=== PATIENT | male | born 1990 | race Caucasian/White ===

== ENCOUNTER 2020-11-24 09:03 | Emergency (ER) | payer OTHER ==
[~2020-11-24] VITALS: Ht 172.7 cm; Wt 68.8 kg
--- NOTE | 2020-11-24 09:10 | NUR ---
PT HAS BLACK SUBSTANCE IN BAGGY. BAGGY GIVEN TO SECURITY. SINGLE CORNER CUTTER ADVISED.
--- NOTE | 2020-11-24 09:26 | NUR ---
BLACK TAR LIKE SUBSTANCE DISPOSED OF IN PHARMACY BIOMED BOTTLE WITH SPRING CRATER MARIA A WITNESS.
[2020-11-24] MEDS ORDERED: NALOXONE 0.4 MG/ML, 1ML IM ONE (09:30)
[2020-11-24] MEDS ORDERED: NALOXONE 0.4 MG/ML, 1ML ONE (09:32)
[2020-11-24] MEDS ORDERED: NALOXONE 0.4 MG/ML, 1ML IVPush ONE (10:00)
--- NOTE | 2020-11-24 10:45 | NUR ---
PT OFF THE FLOOR TO RADIOLOGY
[2020-11-24 10:59] LABS: AMPHETAMINE SCREEN, URINE Positive (Negative); BARBITURATE SCREEN, URINE Negative (Negative); BENZODIAZEPINE SCREEN, URINE Positive (Negative); COCAINE SCREEN, URINE Negative (Negative); METHADONE SCREEN, URINE Negative (Negative); OPIATE SCREEN, URINE Positive (Negative)
[2020-11-24 11:06] LABS: CANNABINOID SCREEN, URINE Positive (Negative)
--- NOTE | 2020-11-24 11:10 | NUR ---
PT BACK FROM CT. INFANT ROOM TEACHER ADVISED UNABLE TO COMPLETE CT DUE TO PT BEING COMBATIVE WITH STAFF.
[2020-11-24 11:33] LABS: BASOPHILS % (AUTO) 1 % (0-1); EOSINOPHILS % (AUTO) 3 % (1-7); LYMPHOCYTES % (AUTO) 32 % (22-44); MEAN CORPUSCULAR HEMOGLOBIN 30.1 pg (27.5-34.5); MEAN CORPUSCULAR HGB CONC 33.9 g/dL (33.2-36.2); MEAN PLATELET VOLUME 8.2 fL (7.4-10.4); MONOCYTES % (AUTO) 13 % (2-9); NEUTROPHILS % (AUTO) 51 % (42-75); PLATELET COUNT 232 x10^3/uL (130-400); RED BLOOD COUNT 4.82 x10^6/uL (4.38-5.82); RED CELL DISTRIBUTION WIDTH 14.3 % (9.4-14.8)
[2020-11-24 11:46] LABS: ALBUMIN 3.4 g/dL (3.4-5.0); ANION GAP 9 mmol/L (5-15); CALCIUM 9.3 mg/dL (8.5-10.1); CHLORIDE 107 mmol/L (98-107)
[2020-11-24 11:50] LABS: ALANINE AMINOTRANSFERASE 118 U/L (12-78); ALKALINE PHOSPHATASE 85 U/L (45-117); BILIRUBIN,TOTAL 1.8 mg/dL (0.2-1.0); CREATININE 0.73 mg/dL (0.7-1.3); TOTAL PROTEIN 7.6 g/dL (6.4-8.2)
[2020-11-24] MEDS ORDERED: NALOXONE 1 MG/ML, 2ML ONE (11:54)
[2020-11-24] MEDS ORDERED: NALOXONE 1 MG/ML, 2ML IM ONE (12:00)
--- NOTE | 2020-11-24 14:58 | NUR ---
PT LAYING ON SIDE ON ED GURNEY WITH EYES CLOSED, EVEN RISE AND FALL OF CHEST NOTED. PT RESPONDS TO VOICE BUT NOT ANSWERING QUESTIONS, BUT WILL FOLLOW COMMANDS. VSS. RAILS UP. CALL LIGHT WITHIN REACH.
--- NOTE | 2020-11-24 16:23 | NUR ---
PT LAYING ON SIDE ON ED GURNEY WITH EYES CLOSED, EVEN RISE AND FALL OF CHEST NOTED. PT RESPONDS TO VOICE. VSS. RAILS UP. CALL LIGHT WITHIN REACH. AWAITING FURTHER ORDERS.
--- NOTE | 2020-11-24 17:04 | NUR ---
PT'S MOM CONTACTED [phone] TO FACILITATE PT RIDE HOME
--- NOTE | 2020-11-24 18:00 | NUR ---
PT IN ROOM WITH MOTHER. WHILE GIVING PT DISCHARGE INSTRUCTIONS MOTHER MADE STATMENTS THAT THE PATIENT HAD BEEN TAKING DRUGS MORE FREQUENTLY AND SHE WAS WORRIED THAT HE WAS GOIGN TO . WHEN PT ASKED DIRECTLY IF HE INTENEDED TO HARM HIMSELF PT STATED "IF DOING THIS GETS ME TO MY DAD, THEN YEAH". PT THEN ASKED THE NURSE TO TAKE ALL THE DILAUDID AND PUT IT A NEEDLE AND JAM IT INTO HIS NECK. PT'S MOM SAID THAT SHE WOULD NOT TAKE RESPONSIBILITY FOR HIM AND SHE FEARED HE WOULD HARM HIMSELF IN ORDER TO AND BE WITH HIS DAD. DR GALDAMEZ ADVISED OF PT STATEMENTS. DR GALDAMEZ ADVISED HE WOULD BE PUTTING PT ON LEGAL HOLD. SECURITY REQUESTED TO HELP MOVE PATIENT TO A DIFFERENT ROOM THAT COULD BE SECURED AND HAVE A SITTER. PT NOT COOPERATING WITH STAFF AND WAS PLACED IN 4 POINT RESTRAINTS. PT PLACED ON [place] AND [facility] ASSESSED.
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
--- NOTE | 2020-11-24 18:53 | NUR ---
REPORT RECIEVED FROM CATY ALFONSO
--- NOTE | 2020-11-24 18:54 | NUR ---
late entry: given food. restraints removed. verbal contract to remain appropriate. vss. sitter at bedside. as
[2020-11-24 19:24] LABS: SALICYLATE LEVEL < 1.7 mg/dL (2.8-20.0)
--- NOTE | 2020-11-24 19:57 | NUR ---
PT ASLEEP IN BED, ALL NEEDS IN REACH, CALL LIGHT IN REACH, NAD, GARAGE DOORS DOWN, SITTER IN LINE OF SIGHT
--- NOTE | 2020-11-24 20:03 | NUR ---
THROUGHPUT RN: PACKET FAXED TO [facility].
--- NOTE | 2020-11-24 20:22 | NUR ---
PT ASLEEP IN BED, ALL NEEDS IN REACH, CALL LIGHT IN REACH, NAD, GARAGE DOORS DOWN, SITTER IN LINE OF SIGHT
--- NOTE | 2020-11-24 21:57 | NUR ---
PT ASLEEP IN BED, ALL NEEDS IN REACH, CALL LIGHT IN REACH, NAD, GARAGE DOORS DOWN, SITTER IN LINE OF SIGHT
--- NOTE | 2020-11-24 22:03 | NUR ---
PT ASLEEP IN BED, ALL NEEDS IN REACH, CALL LIGHT IN REACH, NAD, GARAGE DOORS DOWN, SITTER IN LINE OF SIGHT
--- NOTE | 2020-11-24 23:13 | NUR ---
PT GAVE CONCENT FOR THIS RN TO GO THROUGH HIS BELONGINGS AND GET THE PHONE FOR HIS GIRLFRIEND WHO IS ADMITTED ON THE 4TH FLOOR, ISA ALFONSO CAME DOWN AND GOT A BLUE PHONE WITH THE OCCUPATIONAL REHABILITATION AIDE AND TOOK IT UP TO PTS GIRLFRIEND
--- NOTE | 2020-11-25 00:08 | NUR ---
PT ASLEEP IN BED, ALL NEEDS IN REACH, CALL LIGHT IN REACH, NAD, GARAGE DOORS DOWN, SITTER IN LINE OF SIGHT
--- NOTE | 2020-11-25 01:06 | NUR ---
PT ASLEEP IN BED, ALL NEEDS IN REACH, CALL LIGHT IN REACH, NAD, GARAGE DOORS DOWN, SITTER IN LINE OF SIGHT
--- NOTE | 2020-11-25 02:02 | NUR ---
PT ASLEEP IN BED, ALL NEEDS IN REACH, CALL LIGHT IN REACH, NAD, GARAGE DOORS DOWN, SITTER IN LINE OF SIGHT
--- NOTE | 2020-11-25 03:41 | NUR ---
PT WOKE UP FROM SLEEPING AND STATED THAT HE IS STARTING TO EXPERIENCE WITHDRAWAL SYMPTOMS FROM HEROIN, PT STATED HE USES 1.5 GRAMS OF HEROIN DAILY IS STARTING TO FEEL REALLY BAD, MD NOTIFIED, PO MEDICATIONS ORDERED AND ADMINISTERED BY THIS RN
[2020-11-25] MEDS ORDERED: DIPHENHYDRAMINE 25 MG CAPSULE ONE (03:46)
[2020-11-25] MEDS ORDERED: LORazepam 1MG TABLET ONE (03:46)
[2020-11-25] MEDS ORDERED: LORazepam 1MG TABLET PO ONE (04:00)
--- NOTE | 2020-11-25 04:07 | NUR ---
PT ASLEEP IN BED, ALL NEEDS IN REACH, CALL LIGHT IN REACH, NAD, GARAGE DOORS DOWN, SITTER IN LINE OF SIGHT
--- NOTE | 2020-11-25 05:12 | NUR ---
PT ASLEEP IN BED, ALL NEEDS IN REACH, CALL LIGHT IN REACH, NAD, GARAGE DOORS DOWN, SITTER IN LINE OF SIGHT
--- NOTE | 2020-11-25 06:05 | NUR ---
PT ASLEEP IN BED, ALL NEEDS IN REACH, CALL LIGHT IN REACH, NAD, GARAGE DOORS DOWN, SITTER IN LINE OF SIGHT
--- NOTE | 2020-11-25 08:45 | NUR ---
pt provided with hmeal tray. a&ox4. reports "i need something for my heroin withdrawal" vss
[2020-11-25 08:46] VITALS: BP 128/85
--- NOTE | 2020-11-25 10:16 | NUR ---
PT AGITATED (PACING IN AND OUT OF ROOM. COMING INTO OTHER PT ROOMS TO FIND NURSE). DISCUSSED POC WITH PT. PT NOT REASSURABLE. REPEATEDLY CLAIMING "IM NOT SUICIDAL". DR MORRISON TO BEDSIDE TO ASSESS
--- NOTE | 2020-11-25 10:55 | NUR ---
pt provided with cranberry juice per request
[2020-11-25] MEDS ORDERED: DIPHENHYDRAMINE 25 MG CAPSULE PO ONE (21:00)
== END 2020-11-25 13:15 | disposition home or self-care (01) ==
LOC: ED 18:34 → INTOOBSV 18:44 → UNDOADMOB 18:44 → EDIP 18:44
DX: R45.851 Suicidal ideations (principal); R51.9 Headache, unspecified; F12.10 Cannabis abuse, uncomplicated; F15.10 Other stimulant abuse, uncomplicated; F11.10 Opioid abuse, uncomplicated; G92 Toxic encephalopathy
CPT/HCPCS: 36415; 70450; 80053; 80299; 80307; 80320; 80329; 85025; 96372; 99285; J2310; Q0163; G0480

== ENCOUNTER 2020-11-28 05:12 | Inpatient (IN) | payer MEDICAID ==
[~2020-11-28] VITALS: Ht 170.2 cm; Wt 72.6 kg
--- NOTE | 2020-11-28 05:28 | NUR ---
PT WHEELED TO ROOM, STATES HE HURTS A LOT, AND HAS A LOT OF SWELLING TO LEFT HAND WITH REDNESS TO DORSAL PART OF HAND. FINGERS SWOLLEN, PULSE INTACT.
[2020-11-28] MEDS ORDERED: VANCOMYCIN PER PHARMACY MC ONE (06:00)
[2020-11-28] MEDS ORDERED: HYDROmorphone 1 MG/ML, 1ML INJ IVPush PRN (06:00)
[2020-11-28] MEDS ORDERED: CLINDAMYCIN PMX 900MG/50ML 50 ML IVPB ONE (06:00)
[2020-11-28] MEDS ORDERED: PIPERACILLIN/TAZO 3.375 GM in DEXTROSE 5% 50 ML IVPB ONE (06:00)
[2020-11-28] MEDS ORDERED: ONDANSETRON 2MG/ML, 2ML IVPush ONE (06:00)
[2020-11-28] MEDS ORDERED: SODIUM CHLORIDE 0.9% 1,000ML IVBOLUS ONE (06:00)
[2020-11-28] MEDS ORDERED: VANCOMYCIN 1,800 MG in SODIUM CHLORIDE 0.9% 250 ML IV ONE (06:00)
[2020-11-28] MEDS ORDERED: HYDROmorphone 2 MG/ML, 1ML ONE ×2 (06:30→13:16)
[2020-11-28] MEDS ORDERED: CLINDAMYCIN PMX 900MG/50ML 50 ML ONE (06:30)
[2020-11-28] MEDS ORDERED: ONDANSETRON 2MG/ML, 2ML ONE (06:30)
[2020-11-28 06:32] LABS: ALANINE AMINOTRANSFERASE 64 U/L (12-78); ALBUMIN 3.2 g/dL (3.4-5.0); ANION GAP 8 mmol/L (5-15); CALCIUM 9.3 mg/dL (8.5-10.1); CHLORIDE 104 mmol/L (98-107)
[2020-11-28 06:34] LABS: ALKALINE PHOSPHATASE 82 U/L (45-117); BILIRUBIN,TOTAL 0.7 mg/dL (0.2-1.0); TOTAL PROTEIN 7.5 g/dL (6.4-8.2)
[2020-11-28 06:41] LABS: BASOPHILS % (AUTO) 0 % (0-1); EOSINOPHILS % (AUTO) 1 % (1-7); LYMPHOCYTES % (AUTO) 9 % (22-44); MEAN CORPUSCULAR HGB CONC 34.3 g/dL (33.2-36.2); MEAN PLATELET VOLUME 8.4 fL (7.4-10.4); MONOCYTES % (AUTO) 7 % (2-9); NEUTROPHILS % (AUTO) 83 % (42-75); PLATELET COUNT 290 x10^3/uL (130-400); RED BLOOD COUNT 4.86 x10^6/uL (4.38-5.82); RED CELL DISTRIBUTION WIDTH 14.1 % (9.4-14.8)
--- NOTE | 2020-11-28 07:17 | NUR ---
IN TO SEE PT
--- NOTE | 2020-11-28 07:29 | NUR ---
mx staff attempting iv access
--- NOTE | 2020-11-28 07:54 | NUR ---
report to Suzanne ALFONSO.
[2020-11-28] MEDS: HYDROmorphone 2 MG/ML, 1ML IVPush PRN ×5 (07:59→20:36)
[2020-11-28] MEDS ORDERED: POTASSIUM CHLORIDE 40 MEQ in SODIUM CHLORIDE 0.9% 500 ML IV ONE (08:00)
[2020-11-28] MEDS ORDERED: ONDANSETRON 2MG/ML, 2ML IVPush PRN ×2 (08:00→13:00)
[2020-11-28 10:51] VITALS: BP 113/72
[2020-11-28] MEDS: CEFTAROLINE 600 MG in SODIUM CHLORIDE 0.9% 100 ML IV SCH ×2 (10:52→20:30)
[2020-11-28] MEDS: NICOTINE 21 MG/24 HR PATCH.TD24 TD SCH (11:38)
[2020-11-28] MEDS ORDERED: FENTANYL PF 250 MCG/5ML ONE (12:38)
[2020-11-28] MEDS ORDERED: FENTANYL PF 100 MCG/2ML ONE ×2 (12:52→13:48)
[2020-11-28] MEDS ORDERED: MEPERIDINE/PF 25MG/ML,1ML ONE (12:52)
[2020-11-28] MEDS ORDERED: OXYcodone 5 MG/5 ML ORAL.SOL UDC ONE (12:52)
[2020-11-28] MEDS: FENTANYL PF 100 MCG/2ML IV PRN ×3 (12:58→13:52)
[2020-11-28] MEDS ORDERED: MEPERIDINE/PF 25MG/0.5ML IVPush PRN (13:00)
[2020-11-28] MEDS ORDERED: METHOCARBAMOL 1,000 MG in DEXTROSE 5% 100 ML IV PRN (13:00)
[2020-11-28] MEDS ORDERED: ACETAMINOPHEN 325 MG TABLET PO PRN (13:00)
[2020-11-28] MEDS ORDERED: OXYcodone 5 MG/5 ML ORAL.SOL UDC PO PRN (13:00)
[2020-11-28] MEDS ORDERED: PROMETHAZINE 25 MG/ML, 1ML IVPush PRN (13:00)
[2020-11-28] MEDS ORDERED: EPHEDRINE 50 MG/ML, 1ML IM PRN (13:00)
[2020-11-28] MEDS ORDERED: LORazepam 2 MG/ML, 1ML IVPush PRN (13:00)
[2020-11-28] MEDS ORDERED: EPHEDRINE 50 MG/ML, 1ML IVPush PRN (13:00)
[2020-11-28] MEDS ORDERED: hydrALAzine 20 MG/ML, 1ML IV PRN (13:00)
[2020-11-28] MEDS ORDERED: LABETALOL 5MG/ML, 20ML IV PRN (13:00)
[2020-11-28] MEDS ORDERED: ACETAMINOPHEN 650 MG/20.3 ML UDC ONE (13:05)
[2020-11-28] MEDS: HYDROmorphone 1 MG/ML, 1ML INJ IVPush PRN ×3 (13:21→13:43)
[2020-11-28] MEDS: NS + 20MEQ KCL 1,000 ML IV SCH ×2 (15:19→20:36)
[2020-11-28 20:17] VITALS: BP 132/74
[2020-11-28] MEDS ORDERED: MELATONIN 5 MG TABLET PO PRN (21:30)
[2020-11-29 00:35] VITALS: BP 144/79
[2020-11-29] MEDS: HYDROmorphone 2 MG/ML, 1ML IVPush PRN ×6 (00:45→20:33)
[2020-11-29] MEDS: NS + 20MEQ KCL 1,000 ML IV SCH ×2 (05:38→16:37)
[2020-11-29 08:35] LABS: BASOPHILS % (AUTO) 1 % (0-1); EOSINOPHILS % (AUTO) 0 % (1-7); LYMPHOCYTES % (AUTO) 14 % (22-44); MEAN CORPUSCULAR HGB CONC 34.1 g/dL (33.2-36.2); MONOCYTES % (AUTO) 8 % (2-9); NEUTROPHILS % (AUTO) 78 % (42-75); PLATELET COUNT 323 x10^3/uL (130-400); RED BLOOD COUNT 4.99 x10^6/uL (4.38-5.82); RED CELL DISTRIBUTION WIDTH 14.5 % (9.4-14.8)
[2020-11-29] MEDS: CEFTAROLINE 600 MG in SODIUM CHLORIDE 0.9% 100 ML IV SCH ×2 (08:42→19:55)
[2020-11-29] MEDS: NICOTINE 21 MG/24 HR PATCH.TD24 TD SCH (08:42)
[2020-11-29 08:50] LABS: ALBUMIN 2.7 g/dL (3.4-5.0); ANION GAP 8 mmol/L (5-15); CALCIUM 8.8 mg/dL (8.5-10.1); CHLORIDE 104 mmol/L (98-107)
[2020-11-29 08:53] LABS: ALANINE AMINOTRANSFERASE 45 U/L (12-78); ALKALINE PHOSPHATASE 81 U/L (45-117); BILIRUBIN,TOTAL 0.5 mg/dL (0.2-1.0); TOTAL PROTEIN 7.2 g/dL (6.4-8.2)
[2020-11-29 09:00] VITALS: BP 126/88
[2020-11-29] MEDS: KETOROLAC 30 MG/1 ML IVPush SCH ×2 (12:48→19:55)
[2020-11-29 13:49] VITALS: BP 125/77
[2020-11-29 19:47] VITALS: BP 119/71
[2020-11-30] MEDS: KETOROLAC 30 MG/1 ML IVPush SCH ×4 (01:00→19:09)
[2020-11-30 02:14] VITALS: BP 112/65
[2020-11-30] MEDS: NS + 20MEQ KCL 1,000 ML IV SCH (04:26)
[2020-11-30] MEDS: HYDROmorphone 2 MG/ML, 1ML IVPush PRN ×5 (04:52→20:29)
[2020-11-30 07:47] VITALS: BP 111/71
[2020-11-30] MEDS: CEFTAROLINE 600 MG in SODIUM CHLORIDE 0.9% 100 ML IV SCH ×2 (09:06→20:29)
[2020-11-30] MEDS: NICOTINE 21 MG/24 HR PATCH.TD24 TD SCH (09:06)
[2020-11-30 09:40] LABS: BASOPHILS % (AUTO) 1 % (0-1); EOSINOPHILS % (AUTO) 3 % (1-7); LYMPHOCYTES % (AUTO) 20 % (22-44); MEAN CORPUSCULAR HEMOGLOBIN 30.4 pg (27.5-34.5); MEAN PLATELET VOLUME 7.7 fL (7.4-10.4); MONOCYTES % (AUTO) 7 % (2-9); NEUTROPHILS % (AUTO) 69 % (42-75); PLATELET COUNT 294 x10^3/uL (130-400); RED BLOOD COUNT 4.88 x10^6/uL (4.38-5.82); RED CELL DISTRIBUTION WIDTH 14.5 % (9.4-14.8)
[2020-11-30 09:52] LABS: ANION GAP 5 mmol/L (5-15); CHLORIDE 110 mmol/L (98-107); CREATININE 0.73 mg/dL (0.7-1.3)
[2020-11-30 16:34] VITALS: BP 119/71
[2020-12-01] MEDS: KETOROLAC 30 MG/1 ML IVPush SCH ×5 (01:00→18:11)
[2020-12-01 01:39] VITALS: BP 125/76
[2020-12-01] MEDS: HYDROmorphone 2 MG/ML, 1ML IVPush PRN ×4 (05:54→22:56)
[2020-12-01] MEDS: NICOTINE 21 MG/24 HR PATCH.TD24 TD SCH (10:00)
[2020-12-01] MEDS: CEFTAROLINE 600 MG in SODIUM CHLORIDE 0.9% 100 ML IV SCH ×2 (10:01→19:51)
[2020-12-01 10:08] LABS: BASOPHILS % (AUTO) 1 % (0-1); EOSINOPHILS % (AUTO) 3 % (1-7); LYMPHOCYTES % (AUTO) 27 % (22-44); MEAN CORPUSCULAR HEMOGLOBIN 29.6 pg (27.5-34.5); MEAN CORPUSCULAR HGB CONC 33.2 g/dL (33.2-36.2); MEAN PLATELET VOLUME 7.6 fL (7.4-10.4); MONOCYTES % (AUTO) 5 % (2-9); NEUTROPHILS % (AUTO) 64 % (42-75); PLATELET COUNT 359 x10^3/uL (130-400); RED BLOOD COUNT 5.52 x10^6/uL (4.38-5.82); RED CELL DISTRIBUTION WIDTH 14.1 % (9.4-14.8)
[2020-12-01 17:15] VITALS: BP 116/72
[2020-12-01 19:14] VITALS: BP 147/70
[2020-12-02] MEDS: KETOROLAC 30 MG/1 ML IVPush SCH ×3 (01:00→10:36)
[2020-12-02] MEDS ORDERED: HYDROcodone/APAP 5/325 TABLET PO PRN (08:00)
[2020-12-02] MEDS ORDERED: POLYETHYLENE GLYCOL 17 GM PACKET NG PRN (08:00)
[2020-12-02 08:15] VITALS: BP 117/70
[2020-12-02] MEDS: NICOTINE 21 MG/24 HR PATCH.TD24 TD SCH (08:53)
[2020-12-02] MEDS: HYDROmorphone 2 MG/ML, 1ML IVPush PRN (08:57)
[2020-12-02] MEDS ORDERED: SENNA/DOCUSATE TABLET PO SCH (09:00)
[2020-12-02] MEDS: CEFTAROLINE 600 MG in SODIUM CHLORIDE 0.9% 100 ML IV SCH (09:10)
== END 2020-12-02 12:23 | disposition left against medical advice (07) | DRG 710 ==
LOC: ED 06:00 → EDIP 07:01 → SUATTDRO 07:03 → 4WST 09:14
PROVIDERS: ADMIT Hospitalist; ATTEND Family Medicine
PROC: 0K9D0ZZ Drainage of Left Hand Muscle, Open Approach (ICD-10-PCS; principal; 2020-11-28 12:00)
DX: A41.9 Sepsis, unspecified organism (principal); E87.2 Acidosis; E87.1 Hypo-osmolality and hyponatremia; E88.09 Other disorders of plasma-protein metabolism, not elsewhere classified; L03.114 Cellulitis of left upper limb; L02.512 Cutaneous abscess of left hand; F17.210 Nicotine dependence, cigarettes, uncomplicated; E87.6 Hypokalemia; F15.10 Other stimulant abuse, uncomplicated; F11.10 Opioid abuse, uncomplicated; Z53.29 Procedure and treatment not carried out because of patient's decision for other reasons; Z20.822 Contact with and (suspected) exposure to COVID-19; Z88.2 Allergy status to sulfonamides; Z82.49 Family history of ischemic heart disease and other diseases of the circulatory system; Z83.3 Family history of diabetes mellitus
CPT/HCPCS: 36415; 80048; 80053; 83605; 83735; 84100; 84145; 85025; 87040; 87070; 87075; 87077; 87205; 87635; 96374; 96375; 99285; G0378; J0712; J1170; J1885; J2175; J2405; J3010; J3480; J7030; J7040

== ENCOUNTER 2020-12-07 03:41 | Emergency (ER) | payer MEDICAID ==
[~2020-12-07] VITALS: Ht 170.2 cm; Wt 75.9 kg
--- NOTE | 2020-12-07 04:53 | NUR ---
pt to room from lobby
[2020-12-07] MEDS ORDERED: PIPERACILLIN/TAZO 3.375 GM in DEXTROSE 5% 50 ML IVPB ONE (05:30)
[2020-12-07 06:11] LABS: BASOPHILS % (AUTO) 1 % (0-1); EOSINOPHILS % (AUTO) 3 % (1-7); LYMPHOCYTES % (AUTO) 35 % (22-44); MEAN CORPUSCULAR HEMOGLOBIN 30.6 pg (27.5-34.5); MEAN CORPUSCULAR HGB CONC 34.7 g/dL (33.2-36.2); MEAN PLATELET VOLUME 7.5 fL (7.4-10.4); MONOCYTES % (AUTO) 9 % (2-9); NEUTROPHILS % (AUTO) 52 % (42-75); PLATELET COUNT 409 x10^3/uL (130-400); RED BLOOD COUNT 4.36 x10^6/uL (4.38-5.82)
[2020-12-07 06:27] LABS: ALANINE AMINOTRANSFERASE 51 U/L (12-78); ANION GAP 8 mmol/L (5-15); CALCIUM 8.3 mg/dL (8.5-10.1); CHLORIDE 104 mmol/L (98-107); CREATININE 1.15 mg/dL (0.7-1.3)
[2020-12-07 06:29] LABS: ALKALINE PHOSPHATASE 84 U/L (45-117); BILIRUBIN,TOTAL 0.5 mg/dL (0.2-1.0)
--- NOTE | 2020-12-07 06:52 | NUR ---
REPORT TO KADEN BEAULIEU NO FURTHER QUESTIONS.
--- NOTE | 2020-12-07 06:57 | NUR ---
Report to KADEN Mckinney. First contact with patient, pt asking for dilaudid. ERP is aware of this request. AIDET provided
--- NOTE | 2020-12-07 08:25 | NUR ---
Sleeping, RR equal and unlabored. ERP waiting for ortho to respond, paged x3.
--- NOTE | 2020-12-07 08:55 | NUR ---
Report to KADEN Son
--- NOTE | 2020-12-07 09:25 | NUR ---
PT ASLEEP IN BED, NAD NOTED AT THIS TIME. AWAITING RETURN PAGE FROM ORTHO, WHICH GUN PERFORATOR LOADER HAS PAGED MULTIPLE TIMES.
[2020-12-07 09:53] VITALS: BP 113/70
--- NOTE | 2020-12-07 09:53 | NUR ---
PT AMBULATES WELL TO BATHROOM INDEPENDENTLY AND BACK TO BED. NAD NOTED AT THIS TIME.
== END 2020-12-07 10:36 | disposition home or self-care (01) ==
LOC: ED 06:27
DX: L03.114 Cellulitis of left upper limb (principal)
CPT/HCPCS: 36415; 73130; 80053; 85025; 87040; 96365; 99284; J2543